=== PATIENT | male | born 1970 | race Caucasian/White ===

== ENCOUNTER 2020-08-30 13:04 | Inpatient (IN) | payer OTHER ==
--- OUTSIDE RECORDS SUMMARY | 2020-08-30 13:08 | XMS ---
:1970 Author Organization [facility] Support Name Relationship Address Phone UE Unavailable Unavailable Unavailable RANGEL VALENTINE SISTER [place], [place] Re-disclosure Warning The records that you are about to access may contain information from federally- assisted alcohol or drug abuse programs. If such information is present, then the following federally mandated warning applies: This information has been disclosed to you from records protected by federal confidentiality rules (42 CFR part 2). The federal rules prohibit you from making any further disclosure of this information unless further disclosure is expressly permitted by the written consent of the person to whom it pertains or as otherwise permitted by 42 CFR part 2. A general authorization for the release of medical or other information is NOT sufficient for this purpose. The Federal rules restrict any use of the information to criminally investigate or prosecute any alcohol or drug abuse patient.The records that you are about to access may contain highly sensitive health information, the redisclosure of which is protected by Article 27-F of the [facility] Public Health law. If you continue you may haveaccess to information: Regarding HIV / AIDS; Provided by facilities licensed or operated by the [facility] Office of Mental Health; or Provided by the [facility] Office for People With Developmental Disabilities. If such information is present, then the following [facility] mandated warning applies: This information has been disclosed to you from confidential records which are protected by state law. State law prohibits you from making any further disclosure of this information without the specific written consent of the person to whom it pertains, or as otherwise permitted by law. Any unauthorized further disclosure in violation of state law may result in a fine or care home sentence or both. A general authorization for the release of medical or other information is NOT sufficient authorization for further disclosure. Insurance Providers Payer name Policy type Policy ID Covered Covered democrat's Policy P angella / Coverage democrat ID relationship to [facility] ormation type [facility] HE[facility] [id number] FIRST Results ID Date Data Source [id number] 08/10/2020 08:17:00 PM EDT [facility] Name Value Range Interpretation Code Description Data Rebecca rce(s) Supporting Document(s ) SARS-CoV-2 [place] RNA Resp Ql CHANTEL+probe This lab was ordered by Demian and tiana quinteros by [facility]. ID Date Data Source [id number] 06/28/2020 03:07:00 PM EDT [facility] Name Value Range Interpretation Description Data Sup porting Code Source(s) Document(s ) SARS [place] Coronavirus 2 RNA Presence Respiratory Specimen CHANTEL Probe Detection This lab was ordered by [place] and rep orted by [facility]. Procedure
--- NOTE | 2020-08-30 13:38 | BHS.RME ---
2019 N Coronavirus Screen - COVID-19 Screening Questions Dx of COVID-19 or had a positive test in the last 4 weeks?: No Contact with known/suspected COVID patient in last 14 days?: No Any of these symptoms or contact with someone who has?: None Traveled domestically/internationally in the last 14 days?: No Screen score: 0 Screen result: Further Evaluation Substance Use & Tx History - Substance Use History Alcohol Substance amount: 5 beers 24 oz Frequency of use: Daily Substance route: Oral Date of Last Use: 08/30/20 (started age 40) Cocaine- Powder Substance amount: $20 Frequency of use: Daily Substance route: Inhalation (ex: sniffing or snorting) Date of Last Use: 08/25/20 (started age 47) - Last Treatment Date of last treatment: 2015 and 6 days ago Treatment type: Substance Use Disorder (JOSE RAMON) Where was last treatment: Detox Physical/Psych/Mental Status - Behavior General Behavior: Increased activity (restlessness, agitation) Eye Contact: Normal - Cooperativeness Cooperativeness: Cooperative - Thinking Thought Processes: Tight, Logical, Goal Directed - Physical Health Problems Is patient presently having any pain?: No Does patient presently have any injuries (include location): No Does patient currently have a fever: No Is patient : No CIWA Nausea/Vomitin Muscle Tremors: 4-Moderate,w/Arms Extend Anxiety: 3 Agitation: 0-Normal Activity Paroxysmal Sweats: 4-Forehead w/Sweat Beads Orientation: 1-Uncertain about Date Tacttile Disturbances: 0-None Auditory Disturbances: 0-None Visual Disturbances: 0-None Headache: 0-None Present CIWA-Ar Total Score: 14
[2020-08-30 13:51] VITALS: BMI 30.7
--- NOTE | 2020-08-30 14:39 | HP ---
CIWA Score Nausea/Vomitin Muscle Tremors: 4-Moderate,w/Arms Extend Anxiety: 3 Agitation: 0-Normal Activity Paroxysmal Sweats: 4-Forehead w/Sweat Beads Orientation: 1-Uncertain about Date Tacttile Disturbances: 0-None Auditory Disturbances: 0-None Visual Disturbances: 0-None Headache: 0-None Present CIWA-Ar Total Score: 14 - Admission Criteria [facility] Guidelines: Admission for Medically Managed Detox: Requires at least one of the followin. CIWA greater than 12 2. Seizures within the past 24 hours 3. Delirium tremens within the past 24 hours 4. Hallucinations within the past 24 hours 5. Acute intervention needed for co occurring medical disorder 6. Acute intervention needed for co occurring psychiatric disorder 7. Severe withdrawal that cannot be handled at a lower level of care (continued vomiting, continued diarrhea, abnormal vital signs) requiring intravenous medication and/or fluids 8. Admitting History and Physical - Admission Chief Complaint: I want to stop drinking alcohol History of Present Illness: 49 year old M ([place] Speaking , [employer] used ID# [id number])with no significant past medical history presented with a chief complaint of "I want to stop drinking alcohol". Pt had previously completed detox in 2016. PMH: denied PSH: denied Psych history: Denied; Insomnia (Trazodone) Social: lives [facility] with sister Legal: none - Substance Use History Alcohol Substance amount: 5 beers 24 oz Frequency of use: Daily Substance route: Oral Date of Last Use: 08/30/20 (started age 40) Denied Seizures or blackout. 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 Upon today's evaluation CIWA 14 (08/30/2020) Cocaine- Powder Substance amount: $20 Frequency of use: Daily Substance route: Inhalation (ex: sniffing or snorting) Date of Last Use: 08/25/20 (started age 47) - Last Treatment Date of last treatment: 2015 and 6 days ago Treatment type: Substance Use Disorder (JOSE RAMON) Where was last treatment: Detox History Source: Patient Limitations to Obtaining History: Language Barrier - Smoking History Smoking history: Never smoked Have you smoked in the past 12 months: No - Alcohol/Substance Use Hx Alcohol Use: Yes Admission ROS BHS - HPI Allergies/Adverse Reactions: Allergies Allergy/AdvReac Type Severity Reaction Status Date / Time No Known Allergies Allergy Verified 08/30/20 14:17 Exam Limitations: No Limitations - Ebola screening Have you traveled outside of the country in the last 21 days: No Have you had contact with anyone from an Ebola affected area: No Have you been sick,other than usual withdrawal symptoms: No - Review of Systems Constitutional: No Symptoms Reported EENT: reports: No Symptoms Reported Respiratory: reports: No Symptoms reported Cardiac: reports: No Symptoms Reported GI: reports: Nausea Neuro: reports: No Symptoms reported Endocrine: reports: No Symptoms Reported Hematology: reports: No Symptoms Reported Psychiatric: reports: No Sypmtoms Reported Patient History - Patient Medical History Hx Asthma: No Hx Chronic Obstructive Pulmonary Disease (COPD): No Hx Cancer: No Hx Cardiac Disorders: No Hx Hypertension: No Hx Seizures: No Hx Dementia: No Hx Diabetes: No Hx Gastrointestinal Disorders: No Hx Liver Disease: No Hx Genitourinary Disorders: No Hx Sexually Transmitted Disorders: No Hx Renal Disease (ESRD): No Hx Thyroid Disease: No Hx Hepatitis C: No Hx Depression: No Hx Suicide Attempt: Yes Hx Bipolar Disorder: Yes Hx Schizophrenia: No - Patient Surgical History Past Surgical History: No Hx Neurologic Surgery: No Hx Cataract Extraction: No Hx Cardiac Surgery: No Hx Lung Surgery: No Hx Breast Surgery: No Hx Breast Biopsy: No Hx Abdominal Surgery: No Hx Appendectomy: No Hx Cholecystectomy: No Hx Genitourinary Surgery: No Hx Section: No Hx Orthopedic Surgery: No Hx Hysterectomy: No Anesthesia Reaction: No - PPD History Documented Results: Negative w/o proof Implanted On Prior R Admission?: Yes Date: 12/27/15 - Reproductive History Patient : No - Smoking Cessation Smoking history: Never smoked Have you smoked in the past 12 months: No Admission Physical Exam S - Vital Signs Vital Signs: Vital Signs - 24 hr 08/30/20 13:49 Temperature 98.2 F Pulse Rate 106 H Respiratory 16 Rate Blood Pressure 140/89 - Physical General Appearance: Yes: Irritable, Sweating, Anxious HEENTM: Yes: Normocephalic, MARY, Pharynx Normal Respiratory: Yes: Within Normal Limits, Chest Non-Tender, Lungs Clear, No Respiratory Distress Neck: Yes: No masses,lesions,Nodules, Supple Breast: Yes: Breast Exam Deferred Cardiology: Yes: Regular Rhythm, Regular Rate, S1, S2 Abdominal: Yes: Normal Bowel Sounds, Non Tender, Soft, Protuberent Genitourinary: Yes: Other (deferred) Back: Yes: Within Normal Limits Musculoskeletal: Yes: full range of Motion, Gait Steady Extremities: Yes: Within Normal Limits, Non-Tender Neurological: Yes: broach trouble shooter II-XII NML intact, Fully Oriented, Alert, Motor Strength 5/5 Integumentary: Yes: Warm, Moist Lymphatic: Yes: Within Normal Limits Cleared for Admission S - Detox or Rehab [facility] Level of Care: Medically Managed Breathalyzer - Breathalyzer Breathalyzer: 0.053 Vital Signs - Vital Signs Vital signs refused: No Urine Drug Screen - Test Device Lot number: [id number] Expiration date: 02/17/22 - Control Is test valid?: Yes - Results Drug screen NEGATIVE: No Urine drug screen results: YAYA-Cocaine, BZO-Benzodiazepines Inpatient Rehab Admission - Rehab Decision to Admit Inpatient rehab admission?: No
--- OUTSIDE RECORDS SUMMARY | 2020-08-30 14:59 | XMS ---
:1970 Author Organization [facility] Support Name Relationship Address Phone UE Unavailable Unavailable Unavailable RANGEL VALENTINE SISTER [place], [place] Re-disclosure Warning The records that [...] is protected by Article 27-F of the [facility] Public Health law. If you continue you may haveaccess to information: Regarding HIV / AIDS; Provided by facilities licensed or operated by the [facility] Office of Mental Health; or Provided by the [facility] Office for People With Developmental Disabilities. If such information is present, then the following [facility] mandated warning applies: This information has been [...] law may result in a fine or nursing home sentence or both. A general authorization for the release of medical or other information is NOT sufficient authorization for further disclosure. Insurance Providers Payer name Policy type Policy ID Covered Covered libertarian's Policy P angella / Coverage libertarian ID relationship to [facility] ormation type [facility] HE[employer] [id number] FIRST HEALTH [id number] SP [id number] FIRST Results ID Date Data Source [id number] 08/10/2020 08:17:00 PM EDT [facility] Name Value Range Interpretation Code Description Data Rebecca rce(s) Supporting Document(s ) SARS-CoV-2 [facility] RNA Resp Ql CHANTEL+probe This lab was ordered by [place] and tiana quinteros by [facility]. ID Date Data Source [id number] 06/28/2020 03:07:00 PM EDT [facility] Name Value Range Interpretation Description Data Sup porting Code Source(s) Document(s ) SARS [facility] Coronavirus 2 RNA Presence Respiratory Specimen CHANTEL Probe Detection This lab was ordered by [place] and rep orted by [facility]. Procedure
[2020-08-30] MEDS ORDERED: METHOCARBAMOL 500 MG TABLET PO PRN (15:08)
[2020-08-30] MEDS ORDERED: BISMUTH SUBSALICYLATE 262 MG/15 ML BTL PO PRN (15:08)
[2020-08-30] MEDS ORDERED: MAGNESIUM CITRATE 300 ML BOTTLE PO PRN (15:08)
[2020-08-30] MEDS ORDERED: ACETAMINOPHEN 325 MG TABLET (FP) PO PRN ×2 (15:08)
[2020-08-30] MEDS ORDERED: MENTHOL/PHENOL 1 EACH UD MM PRN (15:08)
[2020-08-30] MEDS ORDERED: MAGNESIUM HYDROX 2400MG/30ML ORAL SUSPENSION 30 ML CUP PO PRN (15:08)
[2020-08-30] MEDS ORDERED: ONDANSETRON *ODT* 4 MG TABLET SL PRN (15:08)
[2020-08-30] MEDS ORDERED: MAG HYDROX/AL HYDROX/SIMETH 30 ML UNIT-DOSE CUP PO PRN (15:08)
[2020-08-30] MEDS ORDERED: IBUPROFEN 400 MG TABLET (FP) PO PRN (15:08)
[2020-08-30] MEDS: chlordiazePOXIDE HCL 25 MG CAPSULE PO PRN ×2 (15:43→20:07)
[2020-08-30 17:11] LABS: HEMATOCRIT 41.9 % (35.4-49); HEMOGLOBIN 13.6 GM/dL (11.7-16.9); MCH 33.4 pg (25.7-33.7); MCHC 32.5 g/dl (32.0-35.9); MEAN CELL VOLUME 102.6 fl (80-96); MEAN PLT VOLUME 9.6 fl (7.5-11.1); PLATELET COUNT 310 K/MM3 (134-434); RBC 4.08 M/mm3 (4.00-5.60); RDW 12.5 % (11.9-15.9); WHITE BLOOD COUNT 7.2 K/mm3 (4.0-10.0)
[2020-08-30 17:14] LABS: POTASSIUM 4.3 mmol/L (3.5-5.1)
[2020-08-30 17:17] LABS: ALBUMIN 3.5 g/dl (3.4-5.0); BLOOD UREA NITROGEN 12.9 mg/dL (7-18)
[2020-08-30 17:20] LABS: CREATININE 0.8 mg/dL (0.55-1.3)
[2020-08-30 17:22] LABS: TOT PROT 7.3 g/dl (6.4-8.2)
[2020-08-30] MEDS: chlordiazePOXIDE HCL 25 MG CAPSULE PO SCH ×2 (17:45→22:36)
[2020-08-30] MEDS: hydrOXYzine PAMOATE 25 MG CAPSULE (FP) PO SCH ×2 (18:23→22:36)
[2020-08-30] MEDS: P-EPHED 60MG/TRIPROLIDI 2.5MG TABLET PO PRN (18:27)
[2020-08-30] MEDS: THIAMINE HCL 100 MG TABLET (FP) PO SCH (22:36)
[2020-08-30] MEDS: MELATONIN 5 MG TABLETS PO SCH (22:38)
[2020-08-31] MEDS: chlordiazePOXIDE HCL 25 MG CAPSULE PO SCH ×4 (07:06→22:06)
[2020-08-31] MEDS: hydrOXYzine PAMOATE 25 MG CAPSULE (FP) PO SCH ×3 (07:06→13:57)
--- NOTE | 2020-08-31 08:49 | CONSULT ---
[facility] Psychiatric Consult - Data Date of interview: 08/31/20 Admission source: Self-referred Identifying data: Mr Sommers is a 49 years old single male, unemployed, living with his sister in [facility] seeking detox treatment for alcohol and cocaine Substance Abuse History: Reports history of alcohol and cocaine use. 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 According to record, patient is known to this facility from a previous admission to this facility in December 2015. However, he claims that this is his first admission to this facility. He said that in December 2015, he was in [place]. He is a poor historian. He reports that his only psychiatric contact occured when he was admitted to [facility] for depression in the context of alcohol intoxication He said that he was kept for 10 days and prescribed Seroquel. He could not tell the date of that hospitalization. He said upon dischareged he was referred to aftercare but did not comply and stopped taking medication as well. Record for patient with that medical record# indicate diagnosis of depression and 6 previous psychiatric hospitalizations with recent one being July 2016. Patient received OPD treatment at [facility] and was prescribed with Alianza 600 mg/bid and Seroquel 300 mg/bid. Denies previous suicidal attempt. At present, denies experiencing psychotic, manic or depressive symptoms, S/H ideations. However, reports sleeping poorly. He is willing to take Seroquel for insomnia Physical/Sexual Abuse/Trauma History: Denies history of abuse as a child or DV relationship as an adult Mental Status Exam - Mental Status Exam Alert and Oriented to: Time (Able to tell year but day is 19 and could not tell month), Place, Person Cognitive Function: Fair Patient Appearance: Well Groomed Mood: Hopeful, Euthymic Patient Behavior: Cooperative Speech Pattern: Clear Voice Loudness: Normal Thought Process: Intact, Goal Oriented Thought Disorder: Not Present Hallucinations: Denies Suicidal Ideation: Denies Homicidal Ideation: Denies Insight/Judgement: Poor Sleep: Poorly Appetite: Good Muscle strength/Tone: Normal Gait/Station: Normal Psychiatric Findings - Problem List ([place] 1, 2,3) (1) Substance induced mood disorder Current Visit: Yes Status: Chronic (2) Bipolar II disorder Current Visit: Yes Status: Ruled-out (3) Substance-induced sleep disorder Current Visit: Yes Status: Acute (4) Alcohol dependence with uncomplicated withdrawal Current Visit: No Status: Acute (5) Cocaine dependence Current Visit: Yes Status: Acute - Initial Treatment Plan Initial Treatment Plan: 1) Start Seroquel 100 mg po HS. 2) Continue inpatient detoxification
--- NOTE | 2020-08-31 09:46 | PN ---
S CIWA - CIWA Score Nausea/Vomitin-No Nausea/No Vomiting Muscle Tremors: 3 Anxiety: 2 Agitation: 2 Paroxysmal Sweats: 2 Orientation: 0-Oriented Tacttile Disturbances: 0-None Auditory Disturbances: 0-None Visual Disturbances: 0-None Headache: 0-None Present CIWA-Ar Total Score: 9 BHS Progress Note (SOAP) Subjective: agitation restless body aches interrupted sleep sweats Objective: 08/31/20 09:46 Vital Signs Temperature 97.3 F L 08/31/20 05:38 Pulse Rate 51 L 08/31/20 05:38 Respiratory Rate 20 08/31/20 05:38 Blood Pressure 114/65 08/31/20 05:38 O2 Sat by Pulse Oximetry (%) 98 08/31/20 05:38 Laboratory Tests 08/30/20 08/30/20 08/30/20 14:53 14:53 14:53 WBC 7.2 RBC 4.08 Hgb 13.6 Hct 41.9 MCV 102.6 H MCH 33.4 MCHC 32.5 RDW 12.5 Plt Count 310 D MPV 9.6 Sodium 140 Potassium 4.3 Chloride 106 Carbon Dioxide 26 Anion Gap 8 BUN 12.9 Creatinine 0.8 Est GFR (CKD-EPI)AfAm 121.57 Est GFR (CKD-EPI)NonAf 104.89 Random Glucose 86 Calcium 9.0 Total Bilirubin 1.0 AST 78 H ALT 98 H Alkaline Phosphatase 144 H Total Protein 7.3 Albumin 3.5 Syphilis Serology Non-reactive labs noted aaox3 ambulating no acute distress Assessment: 08/31/20 09:46 withdrawals Plan: continue detox
[2020-08-31] MEDS ORDERED: MASKS NR ONE (10:23)
[2020-08-31] MEDS: PRENATAL VITAMINS W/ FOLIC ACID TABLET (FP) PO SCH (10:24)
--- NOTE | 2020-08-31 14:23 | PN ---
Teaching Attending Note Name of Resident: Brittnee Vela ATTENDING PHYSICIAN STATEMENT I saw and evaluated the patient. I reviewed the resident's note and discussed the case with the resident. I agree with the resident's findings and plan as documented. SUBJECTIVE: OBJECTIVE: ASSESSMENT AND PLAN: 1. Alcohol use disorder Plan 1. Librium detox protocol
[2020-08-31] MEDS ORDERED: hydrOXYzine PAMOATE 25 MG CAPSULE (FP) PO PRN (15:35)
[2020-08-31] MEDS: P-EPHED 60MG/TRIPROLIDI 2.5MG TABLET PO PRN (18:59)
[2020-08-31] MEDS: chlordiazePOXIDE HCL 25 MG CAPSULE PO PRN (19:35)
[2020-08-31] MEDS ORDERED: QUEtiapine FUMARATE 100 MG TABLET (FP) PO SCH (22:00)
[2020-08-31] MEDS: THIAMINE HCL 100 MG TABLET (FP) PO SCH (22:06)
[2020-08-31] MEDS: MELATONIN 5 MG TABLETS PO SCH (22:08)
[2020-09-01] MEDS: chlordiazePOXIDE HCL 25 MG CAPSULE PO SCH ×2 (05:35→11:02)
[2020-09-01 09:43] VITALS: BP 122/65; PULSE 83; TEMP 98.1
[2020-09-01] MEDS ORDERED: ALBUTEROL SO4 HFA INHALER IH PRN (10:37)
--- NOTE | 2020-09-01 10:52 | PN ---
[facility] CIWA - CIWA Score Nausea/Vomitin-No Nausea/No Vomiting Muscle Tremors: 2 Anxiety: 3 Agitation: 4-Moderately Restless Paroxysmal Sweats: 2 Orientation: 0-Oriented Tacttile Disturbances: 0-None Auditory Disturbances: 0-None Visual Disturbances: 0-None Headache: 0-None Present CIWA-Ar Total Score: 11 BHS Progress Note (SOAP) Subjective: rash sweats body aches irritable agitation I need my asthma pump. I told the doctor on admission that I was positive ppd because I am of [place] decent and was [place]. now I have a large rash on my arm where the ppd was placed. Objective: 09/01/20 10:48 Vital Signs Temperature 98.1 F 09/01/20 09:09 Pulse Rate 83 09/01/20 09:09 Respiratory Rate 16 09/01/20 09:09 Blood Pressure 122/65 09/01/20 09:09 O2 Sat by Pulse Oximetry (%) 100 09/01/20 09:09 Laboratory Tests 08/30/20 08/30/20 08/30/20 14:50 14:53 14:53 WBC 7.2 RBC 4.08 Hgb 13.6 Hct 41.9 MCV 102.6 H MCH 33.4 MCHC 32.5 RDW 12.5 Plt Count 310 D MPV 9.6 Sodium 140 Potassium 4.3 Chloride 106 Carbon Dioxide 26 Anion Gap 8 BUN 12.9 Creatinine 0.8 Est GFR (CKD-EPI)AfAm 121.57 Est GFR (CKD-EPI)NonAf 104.89 Random Glucose 86 Calcium 9.0 Total Bilirubin 1.0 AST 78 H ALT 98 H Alkaline Phosphatase 144 H Total Protein 7.3 Albumin 3.5 Syphilis Serology COVID-19 (CHANTEL) Not detected 08/30/20 14:53 WBC RBC Hgb Hct MCV MCH MCHC RDW Plt Count MPV Sodium Potassium Chloride Carbon Dioxide Anion Gap BUN Creatinine Est GFR (CKD-EPI)AfAm Est GFR (CKD-EPI)NonAf Random Glucose Calcium Total Bilirubin AST ALT Alkaline Phosphatase Total Protein Albumin Syphilis Serology Non-reactive COVID-19 (CHANTEL) labs noted aaox3 ambulating no acute distress Assessment: 09/01/20 10:49 withdrawals large >10cm rash noted red and angry noted to left forearm. Pt c/o of itchiness and discomfort. hytone ordered chest x-ray ordered Plan: continue detox chest x ray ordered albuterol hytone
[2020-09-01] MEDS ORDERED: HYDROCORTISONE 1% TOPICAL CREAM 30 GM TUBE TP ONE (11:00)
[2020-09-01] MEDS: PRENATAL VITAMINS W/ FOLIC ACID TABLET (FP) PO SCH (11:03)
--- NOTE | 2020-09-01 13:47 | PN ---
[facility] Progress Note Note: pt was encouraged to stay and complete his detox as well as take care of his other issue he complained about. Pt refused to comply with his detox regimen and insisted on leaving. Pt was made aware the risk of seizure, DT, OD and or loss, he chose to sign out AMA.
--- NOTE | 2020-09-01 13:48 | DS ---
[facility] Detox Discharge Summary Admission Date: 08/30/20 - History Present History: Alcohol Dependence, Cocaine Dependence - Physical Exam Results Vital Signs: Vital Signs Temperature 98.1 F 09/01/20 09:09 Pulse Rate 83 09/01/20 09:09 Respiratory Rate 16 09/01/20 09:09 Blood Pressure 122/65 09/01/20 09:09 O2 Sat by Pulse Oximetry (%) 100 09/01/20 09:09 Pertinent Admission Physical Exam Findings: Vital Signs Temperature 98.1 F 09/01/20 09:09 Pulse Rate 83 09/01/20 09:09 Respiratory Rate 16 09/01/20 09:09 Blood Pressure 122/65 09/01/20 09:09 O2 Sat by Pulse Oximetry (%) 100 09/01/20 09:09 Laboratory Tests 08/30/20 08/30/20 08/30/20 14:50 14:53 14:53 WBC 7.2 RBC 4.08 Hgb 13.6 Hct 41.9 MCV 102.6 H MCH 33.4 MCHC 32.5 RDW 12.5 Plt Count 310 D MPV 9.6 Sodium 140 Potassium 4.3 Chloride 106 Carbon Dioxide 26 Anion Gap 8 BUN 12.9 Creatinine 0.8 Est GFR (CKD-EPI)AfAm 121.57 Est GFR (CKD-EPI)NonAf 104.89 Random Glucose 86 Calcium 9.0 Total Bilirubin 1.0 AST 78 H ALT 98 H Alkaline Phosphatase 144 H Total Protein 7.3 Albumin 3.5 Syphilis Serology COVID-19 (CHANTEL) Not detected 08/30/20 14:53 WBC RBC Hgb Hct MCV MCH MCHC RDW Plt Count MPV Sodium Potassium Chloride Carbon Dioxide Anion Gap BUN Creatinine Est GFR (CKD-EPI)AfAm Est GFR (CKD-EPI)NonAf Random Glucose Calcium Total Bilirubin AST ALT Alkaline Phosphatase Total Protein Albumin Syphilis Serology Non-reactive COVID-19 (CHANTEL) aaox3 ambulating no acute distress pt signed out AMA. 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
[2020-09-01] MEDS ORDERED: HYDROCORTISONE 1% TOPICAL CREAM 30 GM TUBE TP PRN (14:00)
[2020-09-02] MEDS ORDERED: chlordiazePOXIDE HCL 10 MG CAPSULE PO PRN
[2020-09-02] MEDS ORDERED: chlordiazePOXIDE HCL 10 MG CAPSULE PO SCH (05:00)
[2020-09-03] MEDS ORDERED: chlordiazePOXIDE HCL 10 MG CAPSULE PO SCH (05:00)
[2020-09-04] MEDS ORDERED: chlordiazePOXIDE HCL 10 MG CAPSULE PO ONE (05:00)
== END 2020-09-01 11:27 | disposition left against medical advice (07) | DRG 770 ==
LOC: YASAS 13:04 → Y6N 14:55
PROVIDERS: ADMIT Allergy & Immunology; ATTEND Allergy & Immunology
PROC: HZ2ZZZZ Detoxification Services for Substance Abuse Treatment (ICD-10-PCS; principal; 2020-08-30)
DX: F10.230 Alcohol dependence with withdrawal, uncomplicated (principal); F14.20 Cocaine dependence, uncomplicated; F31.81 Bipolar II disorder; F19.282 Other psychoactive substance dependence with psychoactive substance-induced sleep disorder; F19.24 Other psychoactive substance dependence with psychoactive substance-induced mood disorder; R76.11 Nonspecific reaction to tuberculin skin test without active tuberculosis; Z91.5 Personal history of self-harm; Z88.7 Allergy status to serum and vaccine; Z59.0 Homelessness
CPT/HCPCS: 36415; 80053; 85027; 86780; C9803; U0003

== ENCOUNTER 2021-02-28 14:56 | Inpatient (IN) | payer OTHER ==
[2021-02-28 15:44] VITALS: BMI 32.3
[2021-02-28] MEDS ORDERED: MAGNESIUM CITRATE 300 ML BOTTLE PO PRN (16:11)
[2021-02-28] MEDS ORDERED: MAGNESIUM HYDROX 2400MG/30ML ORAL SUSPENSION 30 ML CUP PO PRN (16:11)
[2021-02-28] MEDS ORDERED: ACETAMINOPHEN 325 MG TABLET (FP) PO PRN ×2 (16:11)
[2021-02-28] MEDS ORDERED: chlordiazePOXIDE HCL 25 MG CAPSULE PO PRN (16:11)
[2021-02-28] MEDS ORDERED: BISMUTH SUBSALICYLATE 524 MG/30 ML UD PO PRN (16:11)
[2021-02-28] MEDS ORDERED: MAG HYDROX/AL HYDROX/SIMETH 30 ML UNIT-DOSE CUP PO PRN (16:11)
[2021-02-28] MEDS ORDERED: ONDANSETRON *ODT* 4 MG TABLET SL PRN (16:11)
[2021-02-28] MEDS ORDERED: IBUPROFEN 400 MG TABLET (FP) PO PRN (16:11)
[2021-02-28] MEDS ORDERED: MENTHOL/PHENOL 1 EACH UD MM PRN (16:11)
[2021-02-28] MEDS ORDERED: METHOCARBAMOL 500 MG TABLET PO PRN (16:11)
[2021-02-28] MEDS ORDERED: chlordiazePOXIDE HCL 25 MG CAPSULE ONE (16:29)
[2021-02-28] MEDS: hydrOXYzine PAMOATE 25 MG CAPSULE (FP) PO SCH ×2 (18:19→22:36)
[2021-02-28] MEDS: chlordiazePOXIDE HCL 25 MG CAPSULE PO SCH ×2 (18:19→22:37)
[2021-02-28] MEDS: PRENATAL VITAMINS W/ FOLIC ACID TABLET (FP) PO SCH (18:19)
[2021-02-28] MEDS: MELATONIN 5 MG TABLETS PO SCH (22:36)
[2021-02-28] MEDS: THIAMINE HCL 100 MG TABLET (FP) PO SCH (22:36)
[2021-03-01] MEDS: hydrOXYzine PAMOATE 25 MG CAPSULE (FP) PO SCH ×5 (05:17→22:58)
[2021-03-01] MEDS: chlordiazePOXIDE HCL 25 MG CAPSULE PO SCH ×4 (05:17→22:58)
[2021-03-01] MEDS: PRENATAL VITAMINS W/ FOLIC ACID TABLET (FP) PO SCH (10:08)
[2021-03-01 11:12] LABS: HEMATOCRIT 39.4 % (35.4-49); HEMOGLOBIN 13.4 GM/dL (11.7-16.9); MCH 34.7 pg (25.7-33.7); MCHC 34.1 g/dl (32.0-35.9); MEAN CELL VOLUME 101.8 fl (80-96); MEAN PLT VOLUME 9.6 fl (7.5-11.1); PLATELET COUNT 218 K/MM3 (134-434); RBC 3.87 M/mm3 (4.00-5.60); WHITE BLOOD COUNT 7.2 K/mm3 (4.0-10.0)
[2021-03-01 11:14] LABS: BLOOD UREA NITROGEN 18.2 mg/dL (7-18); CALCIUM 9.3 mg/dL (8.5-10.1)
[2021-03-01 11:15] LABS: ALBUMIN 3.6 g/dl (3.4-5.0)
[2021-03-01 11:17] LABS: CREATININE 0.9 mg/dL (0.55-1.3)
[2021-03-01 11:19] LABS: BILIRUBIN,TOTAL 1.7 mg/dL (0.2-1)
[2021-03-01] MEDS: THIAMINE HCL 100 MG TABLET (FP) PO SCH (22:58)
[2021-03-01] MEDS: MELATONIN 5 MG TABLETS PO SCH (22:58)
[2021-03-02] MEDS: hydrOXYzine PAMOATE 25 MG CAPSULE (FP) PO SCH ×5 (05:10→22:09)
[2021-03-02] MEDS: chlordiazePOXIDE HCL 25 MG CAPSULE PO SCH ×4 (05:10→22:10)
[2021-03-02] MEDS ORDERED: AZITHROMYCIN 250 MG TABLET PO ONE (09:17)
[2021-03-02] MEDS: PRENATAL VITAMINS W/ FOLIC ACID TABLET (FP) PO SCH (10:25)
[2021-03-02] MEDS: FLUTICASONE PROP 0.05% 16 GM NASAL SPRAY NS SCH ×2 (11:16→22:11)
[2021-03-02] MEDS ORDERED: LORATADINE 10 MG TABLET PO PRN (16:42)
[2021-03-02] MEDS: THIAMINE HCL 100 MG TABLET (FP) PO SCH (22:09)
[2021-03-02] MEDS: MELATONIN 5 MG TABLETS PO SCH (22:09)
[2021-03-03] MEDS ORDERED: chlordiazePOXIDE HCL 10 MG CAPSULE PO PRN
[2021-03-03] MEDS: hydrOXYzine PAMOATE 25 MG CAPSULE (FP) PO SCH ×2 (05:15→11:50)
[2021-03-03] MEDS: chlordiazePOXIDE HCL 10 MG CAPSULE PO SCH ×4 (05:16→23:13)
[2021-03-03 08:07] LABS: SARS-CoV-2 NAA Detected (Not Detected)
[2021-03-03] MEDS: PRENATAL VITAMINS W/ FOLIC ACID TABLET (FP) PO SCH (11:48)
[2021-03-03] MEDS: AZITHROMYCIN 250 MG TABLET PO SCH (11:48)
[2021-03-03] MEDS: FLUTICASONE PROP 0.05% 16 GM NASAL SPRAY NS SCH ×2 (11:49→23:14)
[2021-03-03] MEDS ORDERED: ALBUTEROL SO4 HFA INHALER IH ONE (13:17)
[2021-03-03] MEDS ORDERED: ALBUTEROL SO4 HFA INHALER IH PRN (13:17)
[2021-03-03] MEDS: guaiFENesin 600 MG TABLET.ER (FP) PO SCH ×2 (14:41→23:14)
[2021-03-03] MEDS: hydrOXYzine PAMOATE 25 MG CAPSULE (FP) PO PRN (18:02)
[2021-03-03] MEDS: THIAMINE HCL 100 MG TABLET (FP) PO SCH (23:13)
[2021-03-03] MEDS: MELATONIN 5 MG TABLETS PO SCH (23:13)
[2021-03-04] MEDS: chlordiazePOXIDE HCL 10 MG CAPSULE PO SCH ×3 (06:13→20:36)
[2021-03-04] MEDS: FLUTICASONE PROP 0.05% 16 GM NASAL SPRAY NS SCH ×2 (11:04→23:38)
[2021-03-04] MEDS: guaiFENesin 600 MG TABLET.ER (FP) PO SCH ×2 (11:04→23:38)
[2021-03-04] MEDS: AZITHROMYCIN 250 MG TABLET PO SCH (11:04)
[2021-03-04] MEDS: PRENATAL VITAMINS W/ FOLIC ACID TABLET (FP) PO SCH (11:12)
[2021-03-04] MEDS ORDERED: QUEtiapine FUMARATE 50 MG TABLET PO ONE (14:52)
[2021-03-04] MEDS: hydrOXYzine PAMOATE 25 MG CAPSULE (FP) PO PRN (14:57)
[2021-03-04] MEDS: THIAMINE HCL 100 MG TABLET (FP) PO SCH (23:38)
[2021-03-04] MEDS: QUEtiapine FUMARATE 100 MG TABLET (FP) PO SCH (23:39)
[2021-03-04] MEDS: MELATONIN 5 MG TABLETS PO SCH (23:39)
[2021-03-05] MEDS ORDERED: chlordiazePOXIDE HCL 10 MG CAPSULE PO ONE (05:00)
[2021-03-05 08:16] VITALS: BP 106/68; PULSE 76; TEMP 97.6
[2021-03-05] MEDS: guaiFENesin 600 MG TABLET.ER (FP) PO SCH ×2 (11:18→11:25)
[2021-03-05] MEDS: FLUTICASONE PROP 0.05% 16 GM NASAL SPRAY NS SCH ×2 (11:18→11:24)
[2021-03-05] MEDS: QUEtiapine FUMARATE 100 MG TABLET (FP) PO SCH ×2 (11:18→11:25)
[2021-03-05] MEDS: PRENATAL VITAMINS W/ FOLIC ACID TABLET (FP) PO SCH (11:19)
[2021-03-05] MEDS: AZITHROMYCIN 250 MG TABLET PO SCH (11:19)
== END 2021-03-05 16:50 | disposition short-term general hospital (02) | DRG 774 ==
LOC: YASAS 14:56 → Y3N 17:07
PROVIDERS: ADMIT Allergy & Immunology; ATTEND Allergy & Immunology
PROC: HZ2ZZZZ Detoxification Services for Substance Abuse Treatment (ICD-10-PCS; principal; 2021-02-28)
DX: F10.230 Alcohol dependence with withdrawal, uncomplicated (principal); F14.20 Cocaine dependence, uncomplicated; F31.9 Bipolar disorder, unspecified; F19.24 Other psychoactive substance dependence with psychoactive substance-induced mood disorder; U07.1 COVID-19; R45.850 Homicidal ideations; S61.411A Laceration without foreign body of right hand, initial encounter; W25.XXXA Contact with sharp glass, initial encounter; Y93.89 Activity, other specified; Y92.230 Patient room in hospital as the place of occurrence of the external cause; Y99.8 Other external cause status; Z88.7 Allergy status to serum and vaccine
CPT/HCPCS: 36415; 71046-TC-FY; 80053; 85027; 86780; C9803; Q0162; U0003; U0005